=== PATIENT | male | born 1985 | race African-American/Black ===

== ENCOUNTER 2019-03-06 21:23 | Emergency (ER) | payer SELFPAY ==
[~2019-03-06] VITALS: Ht 177.8 cm; Wt 80.0 kg
[2019-03-06] MEDS ORDERED: NALOXONE HCL 0.4 MG/ML 1ML VIAL IV PRN (21:45)
[2019-03-06] MEDS ORDERED: HALOPERIDOL LACTATE 5MG/ML VIAL IM ONE (22:00)
[2019-03-06] MEDS ORDERED: DIPHENHYDRAMINE 50MG/ML VIAL IM ONE (22:00)
[2019-03-06 23:41] LABS: CHLORIDE 111 mEq/L (98-107)
[2019-03-06 23:45] LABS: BASOPHILS % 0.3 % (0.0-2.0); EOSINOPHILS % 2.7 % (0.0-5.0); ETHANOL BLOOD 275 mg/dL; HEMATOCRIT. 42.4 % (42.0-52.0); HEMOGLOBIN. 14.2 g/dL (14.0-18.0); LYMPHOCYTES % 55.2 % (20.0-50.0); MEAN CORPUSCULAR HEMOGLOBIN 31.3 pg (28.0-32.0); MEAN CORPUSCULAR VOLUME 93.4 fL (80.0-94.0); MEAN PLATELET VOLUME 7.6 fl (7.4-10.4); MONOCYTES % 5.7 % (2.0-8.0); NEUTROPHILS % 36.1 % (40.0-76.0); PLATELET 201 x1000/uL (130-400); RED BLOOD CELL COUNT 4.54 mill/uL (4.7-6.1); RED CELL DISTRIBUTION WIDTH 13.1 % (11.6-14.6)
[2019-03-07 06:06] VITALS: BP 112/61
== END 2019-03-07 06:30 | disposition home or self-care (01) ==
LOC: ER 21:23
DX: F10.129 Alcohol abuse with intoxication, unspecified (principal); Y90.8 Blood alcohol level of 240 mg/100 ml or more; R45.1 Restlessness and agitation
CPT/HCPCS: 36415; 80053; 80320; 85025; 93005; 96372; 99284; J1200; J1630; G0480